=== PATIENT | female | born 1985 | race Caucasian/White ===

== ENCOUNTER 2017-04-29 17:25 | Emergency (ER) | payer OTHER ==
[2017-04-29 17:40] VITALS: BP 139/96
[2017-04-29] MEDS ORDERED: Lidocaine 2% Jelly 10 ML Urojet MUCMEM ONE (18:57)
[2017-04-29] MEDS ORDERED: Ketorolac 60 MG/2 ML SDV IM ONE (18:57)
[2017-04-29] MEDS ORDERED: valACYclovir 1,000 MG Tab PO SCH (19:00)
--- NOTE | 2017-04-29 19:05 | EDM.PDOC ---
ED HPI GENERAL MEDICAL PROBLEM - General Chief Complaint: Genitourinary Problem Stated Complaint: URINARY TRACT SYMPTOMS Time Seen by Provider: 04/29/17 17:55 Source of Information: Reports: Patient History Limitations: Reports: No Limitations - History of Present Illness INITIAL COMMENTS - FREE TEXT/NARRATIVE: Myriam presents today with complaints of lesions, pain and tenderness to labia. She also complains of recent treatment for UIT. Myriam states she has pain with urination and mild labia pain this past . She went to [facility], was treated for UTI and provided a cream for yeast infection. Since that time, her labia pain has increased, the number of lesions has increased without any improvement. Onset: Gradual Onset Date: 04/26/17 Duration: Day(s): Location: Reports: Other (labia) Quality: Reports: Burning, Sharp, Throbbing Severity: Moderate Improves with: Reports: None Worsens with: Reports: Movement Treatments NEEDLE GRINDER: Reports: Other (see below) (Nitrofurantoin, miconazole) periarea Pain Score (Numeric/FACES): 7 - Related Data Allergies Allergy/AdvReac Type Severity Reaction Status Date / Time No Known Allergies Allergy Verified 04/29/17 17:43 Home Meds: Home Meds Miconazole [Miconazole 2% Crm] 1 applic TOP BID 04/29/17 [History] Montelukast [Singulair] 10 mg PO DAILY 04/29/17 [History] Nitrofurantoin Macrocrystal [Nitrofurantoin] 100 mg PO BID 04/29/17 [History] Past Medical History - Past Health History Medical/Surgical History: Denies Medical/Surgical History Social & Family History - Tobacco Use Smoking Status *Q: Never Smoker Second Hand Smoke Exposure: No - Recreational Drug Use Recreational Drug Use: No ED ROS GENERAL - Review of Systems Review Of Systems: See Below Constitutional: Denies: Fever, Chills, Malaise, Weakness, Night Sweats HEENT: Reports: No Symptoms Respiratory: Denies: Shortness of Breath, Wheezing, Cough, Sputum Cardiovascular: Denies: Chest Pain, Blood Pressure Problem, Dyspnea on Exertion , Edema, Lightheadedness, Palpitations, Syncope Endocrine: Reports: No Symptoms GI/Abdominal: Denies: Abdominal Pain, Anorexia, Constipation, Diarrhea, Nausea, Vomiting : Reports: Dysuria, Frequency, Other (Pain to labia, burning. ). Denies: Flank Pain, Hematuria, Urinary Retention Musculoskeletal: Denies: Joint Pain, Joint Swelling, Muscle Pain, Muscle Stiffness Skin: Reports: Rash, Lesions, Lumps, Other Neurological: Denies: Confusion, Dizziness, Headache, Numbness Psychiatric: Reports: No Symptoms Hematologic/Lymphatic: Reports: No Symptoms Immunologic: Reports: No Symptoms ED EXAM, SKIN/RASH Exam: See Below General Appearance: Alert, WD/WN, Moderate Distress Eye Exam: Bilateral Eye: EOMI Ears: Normal External Exam, Normal Canal, Hearing Grossly Normal, Normal TMs Nose: Normal Mucosa, No Blood Throat/Mouth: Normal Inspection, Normal Lips, Normal Teeth, Normal Gums, Normal Oropharynx, Normal Voice, No Airway Compromise Head: Atraumatic, Normocephalic Neck: Normal Inspection, Supple, Non-Tender, Full Range of Motion Respiratory/Chest: No Respiratory Distress, Lungs Clear, Normal Breath Sounds, No Accessory Muscle Use, Chest Non-Tender Cardiovascular: Normal Peripheral Pulses, Regular Rate, Rhythm, No Edema, No Gallop, No Murmur, No Rub Peripheral Pulses: 2+: Radial (L), Radial (R), Dorsalis Pedis (L), Dorsalis Pedis (R) GI/Abdominal: Normal Bowel Sounds, Soft, Non-Tender, No Organomegaly, No Distention, No Abnormal Bruit, No Mass (Female) Exam: Other (Labial lesions, vesicular, some ulcerative with clear drainage. No crusting noted. NO lesions noted to anus, pubis or thighs. ) Rectal (Female) Exam: Normal Exam Back Exam: Normal Inspection, Full Range of Motion. No: CVA Tenderness (R), CVA Tenderness (L) Extremities: Normal Inspection, Normal Range of Motion, Non-Tender, No Pedal Edema, Normal Capillary Refill Neurological: Alert, Oriented, CN II-XII Intact, Normal Cognition, Normal Gait, No Motor/Sensory Deficits Psychiatric: Normal Affect, Normal Mood Skin: Warm, Wound/Incision (Wounds as described above. ) Location, Skin: Genital Characteristics: Vesicular Associated features: Tenderness, Inflammation, Weeping Lymphatic: No Adenopathy Course - Vital Signs Last Recorded V/S: Last Vital Signs Temp 36.7 C 04/29/17 17:39 Pulse 84 04/29/17 17:39 Resp 16 04/29/17 17:39 BP 139/96 H 04/29/17 17:39 Pulse Ox 98 04/29/17 17:39 - Orders/Labs/Meds Orders: Active Orders 24 hr Category Date Time Status CHLAMYDIA,AND GC BY APTIMA Stat Lab 04/29/17 18:42 Received CULTURE GENITAL [RM] Stat Lab 04/29/17 18:42 Received HSV TYPE 2 AB, IGG [REF] Stat Lab 04/29/17 18:55 Received RPR-TREP PALLIDIUM AB,REFLEX [REF] Stat Lab 04/29/17 18:55 Received Labs: Laboratory Tests 04/29/17 Range/Units 19:44 Urine Color Yellow Urine Appearance Cloudy Urine pH 1.0 L (4.5-8.0) Ur Specific [place] 1.005 L (1.008-1.030) Urine Protein Negative (NEGATIVE) mg/dL Urine Glucose (UA) Negative (NEGATIVE) mg/dL Urine Ketones Negative (NEGATIVE) mg/dL Urine Occult Blood Negative (NEGATIVE) Urine Nitrite Negative (NEGATIVE) Urine Bilirubin Negative (NEGATIVE) Urine Urobilinogen Normal (NORMAL) mg/dL Ur Leukocyte Esterase Negative (NEGATIVE) Urine RBC 0-5 (0-5) Urine WBC 5-10 H (0-5) Ur Epithelial Cells Few Amorphous Sediment Few Urine Bacteria Few Urine Mucus Few Urine Other See note Urinalysis Comment Clue cells seen Meds: Medications Discontinued Medications Generic Name Dose Route Start Last Admin Trade Name Freq PRN Reason Stop Dose Admin Ketorolac Tromethamine 60 mg 04/29/17 18:57 04/29/17 19:06 Toradol IM 04/29/17 18:58 60 mg ONETIME ONE Administration Lidocaine HCl 10 ml 04/29/17 18:57 04/29/17 19:09 Xylocaine 2% Jelly MUCMEM 04/29/17 18:58 10 ml ONETIME ONE Administration Metronidazole 500 mg 04/29/17 19:41 04/29/17 19:56 Metronidazole PO 04/29/17 19:42 500 mg ONETIME ONE Administration Valacyclovir HCl 1,000 mg 04/29/17 19:00 04/29/17 19:09 Valtrex PO 1,000 mg DAILY ALLEN Administration Departure - Departure Time of Disposition: 19:42 Disposition: Home, Self-Care 01 Condition: Good Clinical Impression: Genital herpes, Bacterial vaginosis - Discharge Information Instructions: Bacterial Vaginosis, [id number], Genital Herpes Referrals: Delilah Sánchez PA [Primary Care Provider] - Forms: ED Department Discharge Additional Instructions: You may take valacyclovir 1000mg PO BID for 10 days, first dose given in the emergency room. Hard copy script with one refill provided. You have bacterial vaginosis, you can take metronidazole 500mg by mouth twice per day for 7 days, first dose given in the emergency room, hard copy script provided for remainder of course. You were given toradol 60mg IM for pain, you can continue ibuprofen 600mg by mouth three times a day with food for pain control. You were given Lidocaine gel in the ER for topical pain relief as well as a hard copy script for additional use for pain. Follow up with your primary care provider in 2 weeks for a recheck. Return for any worsening, issues or concerns. - My Orders Last 24 Hours: My Active Orders 04/29/17 18:42 CHLAMYDIA,AND GC BY APTIMA Stat CULTURE GENITAL [RM] Stat 04/29/17 18:55 HSV TYPE 2 AB, IGG [REF] Stat RPR-TREP PALLIDIUM AB,REFLEX [REF] Stat - Assessment/Plan Last 24 Hours: My Active Orders 04/29/17 18:42 CHLAMYDIA,AND GC BY APTIMA Stat CULTURE GENITAL [RM] Stat 04/29/17 18:55 HSV TYPE 2 AB, IGG [REF] Stat RPR-TREP PALLIDIUM AB,REFLEX [REF] Stat Assessment:: Genital herpes first episode, immunocompetent female. Bacterial vaginosis Plan: Patient may take valacyclovir 1000mg PO BID for 10 days, first dose given in the emergency room. Bacterial vaginosis, you can take metronidazole 500mg by mouth twice per day for 7 days, first dose given in the emergency room, hard copy script provided for remainder of course. She was given toradol 60mg IM for pain, she can continue ibuprofen 600mg PO three times a day with food for pain control. She was given Lidocaine gel in the ER for topical pain relief.
[2017-04-29] MEDS ORDERED: metroNIDAZOLE 250 MG Tab PO ONE (19:41)
== END 2017-04-29 20:03 | disposition home or self-care (01) ==
LOC: JP.ED 17:25
DX: A60.00 Herpesviral infection of urogenital system, unspecified (principal); N76.0 Acute vaginitis; Z79.899 Other long term (current) drug therapy
CPT/HCPCS: 36415; 81001; 86696; 86780; 87070; 87210; 87491; 87591; 96372; 99284; A9270; J1885